=== PATIENT | female | born 1990 | race Caucasian/White ===

== ENCOUNTER 2020-01-07 10:56 | Inpatient (IN) ==
[2020-01-07] MEDS ORDERED: Oxytocin/Ringers Lactate 20 UNITS/1,000 ML BAG IV ONE (11:52)
[2020-01-07 11:56] LABS: Random Urine Total Protein Less than 6.0 mg/dL (0-12)
[2020-01-07] MEDS ORDERED: ceFAZolin SODIUM 1 GM VIAL IV PRN (12:05)
[2020-01-07] MEDS ORDERED: HYDROcodone/ACETAMINOPHEN 1 EACH TABLET PO PRN (13:35)
[2020-01-07] MEDS ORDERED: SENNOSIDES 8.6 MG TABLET PO PRN (13:35)
[2020-01-07] MEDS ORDERED: diphenhydrAMINE HCL 25 MG CAPSULE PO PRN (13:35)
[2020-01-07] MEDS ORDERED: BISACODYL 10 MG SUPP.RECT RC PRN (13:35)
[2020-01-07] MEDS ORDERED: SIMETHICONE 80 MG TAB.CHEW PO PRN (13:35)
[2020-01-07] MEDS ORDERED: ONDANSETRON HCL/PF 2 MG/ML VIAL IV PRN (13:35)
--- NOTE | 2020-01-07 13:38 | PN ---
Progess Note - Interim Date: 01/07/20 Time: 13:37 Narrative: 01/07/20 13:37 Please see H&P done in the office EMR
[2020-01-07] MEDS ORDERED: BUPIVACAINE HCL/EPINEPHRINE 50 ML VIAL IJ ONE (14:11)
[2020-01-07] MEDS ORDERED: ceFAZolin SODIUM 1 GM VIAL ONE (14:14)
--- NOTE | 2020-01-07 14:15 | ANES ---
Anesthesia Pre Procedure Eval HOME MEDICATIONS prenat.vits,mukund,[id number] 1 tab PO DAILY 06/25/19 [Last Taken Unknown] Allergies/Adverse Reactions: Allergies Allergy/AdvReac Type Severity Reaction Status Date / Time Penicillins AdvReac RASH Verified 01/07/20 13:27 - Planned Procedure Planned Procedure: Primary Section for Breech Presentation Medication List Reviewed:: Yes Allergies Verified: Yes Medical History (Last Reviewed 01/07/20 @ 14:14 by Bradley Mayorga CRNA) Abnormal Pap smear of cervix Surgical History (Last Reviewed 01/07/20 @ 14:14 by Bradley Mayorga CRNA) History of breast augmentation Onset Date: ~04/19/18 History of colposcopy Onset Date: ~2016 [facility] History of loop electrosurgical excision procedure (LEEP) Onset Date: ~2016 Family History (Last Reviewed 01/07/20 @ 14:14 by Bradley Mayorga CRNA) Mother Colon cancer, Onset Age: 55 Father Hypertension Other No pertinent family history - Family Anesthesia History Family History:: no untoward family reactions to anesthesia - Airway/Neck/Teeth Within Normal Limits:: Yes Teeth Condition: intact Neck Exam: full range of motion Mallampatti Score: 2 Thyromental (T-M) distance: > 6 cm Mandibulo Hyoid distance: > 3 cm - Respiratory Respiratory Physical: lungs clear Smoking Status: Never smoker Sleep Apnea currently treated: No Sleep Apnea by current assessment: No - Cardiovascular Tolerate Activity: Good Heart Sounds: S1 & S2, Regular - Gastrointestinal NPO since: 0800 - Anesthesia Assessment and Plan ASA Class: PS, II Anesthesia Type Plan: Spinal - bilat tap block Planned difficult intubation/equipment available: No
[2020-01-07] MEDS: RINGER'S SOLUTION,LACTATED 1,000 ML IV PRN ×2 (14:16→14:35)
[2020-01-07] MEDS ORDERED: ONDANSETRON HCL/PF 2 MG/ML VIAL ONE (15:37)
--- NOTE | 2020-01-07 17:00 | OR ---
Operative Report - Dictated Report Narrative: Date of delivery: 01/07/2020 Time of delivery: 1532 Gender: male weight: 2727 grams APGARS: 8/9 Preoperative diagnosis: IUP at 36w 2d, oligohydramnios, GHTN, labor Postoperative diagnosis: same. In addition, foul-smelling amniotic fluid Procedure: primary delivery Surgeon: Dr. Max Anesthesia: Spinal Anesthesiologist: Sanjiv Mayorga CRNA Description of the procedure: The patient was taken to the operating room where spinal anesthesia was induced. She was then prepped and draped in the lithotomy position in the standard surgical fashion. A Pfannestiel skin incision was made. The incision was carried through the subcutaneous tissue. The fascia was incised in the midline. The fascial incision was extended sharply. The fascia was dissected off the underlying rectus muscles. The rectus muscles were in the midline. The peritoneum was entered bluntly. A large Lukas restractor was placed in the abdomen. The uterus was incised in a low transverse fashion. The uterine incision was extended bluntly. Minimal amniotic fluid was noted. The amniotic fluid was noted to be foul smelling. The buttocks were delivered followed by the torso and the rest of the infant. Delivery was without difficulty. The cord was clamped and cut and the was handed off to the attending pediatric staff. Cord blood was collected. The placenta was delivered by expression and appeared intact. The uterine incision was repaired using two layers of 0-vicryl. Hemostasis was adequate. The subfascial tissues and rectus muscles were inspected for hemostasis. The fascia was closed with 1-0 vicryl. The subcutaneous tissue was closed with 2-0 vicryl. The skin was closed with 3-0 monocryl. Cesar Chavez marc was placed over the incision. The incision was covered with a dressing. All sponge, lap, and needle counts were correct. The patient tolerated the procedure well. She was transferred to the recovery room in stable condition. EBL: 400 mL Complications: none Specimens: cord blood, placenta
--- NOTE | 2020-01-07 17:44 | ANES ---
Post Anesthesia Discharge - Transfer of Care Transfer of Care handoff given to nurse: Yes - Discharge from PACU Discharge from PACU when meets criteria: Yes
--- NOTE | 2020-01-07 17:44 | ANES ---
Post Anesthesia Assessment - Vital Signs Vitals: Last Vital Signs Temp 36.6 C 01/07/20 16:52 Pulse 96 01/07/20 17:36 Resp 18 01/07/20 17:36 BP 137/68 01/07/20 17:36 Pulse Ox 99 01/07/20 17:36 Airway Patency: Normal - Mental Status Level Of Consciousness: Awake - Pain Level Pain Score: 2 - N/V Assessment Nausea/Vomiting Presence: None Dehydration:: No
--- NOTE | 2020-01-07 17:51 | ANES ---
Anesthesia Procedure Note Procedure Note: ANESTHESIA PROCEDURE NOTE Date of procedure: 01/07/2020. Time of procedure: 1620. Performed by: Sanjiv Mayorga CRNA [employer] Assistant: Marii Orr RN . Preprocedure diagnosis: for breech presentation. Post procedure diagnosis: Same. Procedure: Ultrasound-guided bilateral tap block Indications: Postoperative analgesia. Findings: Patient is brought to the PACU and placed in a supine position. Patient's right abdominal wall was prepped with ChloraPrep. Ultrasound utilized to identify the fascial layer between the internal oblique and transabdominus muscles. 20-gauge 4 inch regional block needle was advanced under ultrasound guidance until tip of needle was placed just distally to fascial layer. 20 mL of 0.25% Marcaine with epinephrine 1-200,000 was injected with adequate spread of local anesthesia noted. Procedure was then repeated on patient's left side. EBL: Minimal. Fluids: N/A. Specimen: N/A. Post procedure condition: The patient tolerated the procedure well. No complications were noted. Thank you for this consultation Sanjiv Mayorga CRNA
[2020-01-07] MEDS: HYDROcodone/ACETAMINOPHEN 1 EACH TABLET PO PRN ×2 (17:54→21:04)
[2020-01-07] MEDS: KETOROLAC TROMETHAMINE 30 MG/ML VIAL IV PRN (17:55)
[2020-01-07] MEDS: DOCUSATE SODIUM 100 MG CAPSULE PO SCH (21:04)
[2020-01-08] MEDS: HYDROcodone/ACETAMINOPHEN 1 EACH TABLET PO PRN ×7 (04:02→23:30)
[2020-01-08] MEDS ORDERED: ceFAZolin SODIUM 1 GM VIAL IV PRN (06:00)
[2020-01-08] MEDS: KETOROLAC TROMETHAMINE 30 MG/ML VIAL IV PRN ×3 (07:07→14:25)
--- NOTE | 2020-01-08 08:54 | PN ---
Subjective - Date and Time Seen Date: 01/08/20 Time: 08:52 Objective - Vitals Vitals: Last Vital Signs Temp 36.8 C 01/08/20 04:00 Pulse 83 01/08/20 04:00 Resp 16 01/08/20 04:00 BP 143/84 H 01/08/20 04:00 Pulse Ox 99 01/08/20 04:00 Patient denies complaints. Tolerating regular diet. Ambulating without difficulty. Pain well controlled. Lochia wnl. Abdomen - soft, appropriately tender Incision -clean, dry, intact uterus - firm, at umbilicus -1 No calf tenderness Impression: Post op day #1 s/p primary section for breech presentation in labor. Gestational hypertension-stable. Oligohydramnios. Plan: Continue routine post-operative/ care. Preeclampsia precautions. - Abnormal Lab Findings Abnormal Lab Findings: Abnormal Lab Results 01/07/20 Range/Units 11:09 Ur Random Creatinine 40.4 L (60-200) mg/dL Cauti Physician Documentation - Urinary Catheter Management Urethral (Anderson) Date of Insertion: 01/07/20 Time of Insertion: 15:18 Date of Removal: 01/08/20 Time of Removal: 04:10
[2020-01-08] MEDS: DOCUSATE SODIUM 100 MG CAPSULE PO SCH ×2 (09:13→22:22)
[2020-01-08] MEDS: IBUPROFEN 800 MG TABLET PO PRN (23:29)
[2020-01-09] MEDS: IBUPROFEN 800 MG TABLET PO PRN ×3 (05:41→19:10)
[2020-01-09] MEDS: DOCUSATE SODIUM 100 MG CAPSULE PO SCH ×2 (09:49→23:17)
[2020-01-09] MEDS: HYDROcodone/ACETAMINOPHEN 1 EACH TABLET PO PRN ×4 (09:49→23:17)
--- NOTE | 2020-01-09 17:45 | PN ---
Subjective - Date and Time Seen Date: 01/09/20 Time: 17:44 Objective - Vitals Vitals: Last Vital Signs Temp 36.4 C 01/09/20 07:01 Pulse 99 01/09/20 07:01 Resp 18 01/09/20 07:01 BP 120/86 01/09/20 07:01 Pulse Ox 99 01/09/20 07:01 Patient denies complaints. Ambulating well. Tolerating regular diet. Pain well controlled. Lochia wnl. Abdomen - soft, appropriately tender Incision -clean, dry, intact uterus - firm, at umbilicus -2 No calf tenderness Impression: Post op day #2 s/p primary section for breech presentation in labor. Gestational hypertension-resolved. Oligohydramnios -r esolved. Plan: Continue routine post-operative/ care Cauti Physician Documentation - Urinary Catheter Management Urethral (Anderson) Date of Insertion: 01/07/20 Time of Insertion: 15:18 Date of Removal: 01/08/20 Time of Removal: 04:10
[2020-01-10] MEDS: IBUPROFEN 800 MG TABLET PO PRN (06:36)
[2020-01-10] MEDS: HYDROcodone/ACETAMINOPHEN 1 EACH TABLET PO PRN (06:37)
[2020-01-10] MEDS: DOCUSATE SODIUM 100 MG CAPSULE PO SCH ×2 (06:37→08:38)
[2020-01-10 07:40] VITALS: BP 139/85
--- NOTE | 2020-01-10 11:12 | PN ---
Subjective - Date and Time Seen Date: 01/10/20 Time: 11:11 Objective - Vitals Vitals: Last Vital Signs Temp 36.8 C 01/10/20 06:40 Pulse 84 01/10/20 06:40 Resp 16 01/10/20 06:40 BP 139/85 01/10/20 06:40 Pulse Ox 100 01/10/20 00:30 Patient denies complaints. Ambulating without difficulty. Tolerating regular diet. Pain well controlled. Lochia wnl. Abdomen - soft, appropriately tender Incision -clean, dry, intact uterus - firm, at umbilicus -3 No calf tenderness Impression: Post op day #3 s/p primary section for breech presentation in labor. Gestational hypertension-resolved. Oligohydramnios - resolved. Plan: Routine discharge instructions Cauti Physician Documentation - Urinary Catheter Management Urethral (Anderson) Date of Insertion: 01/07/20 Time of Insertion: 15:18 Date of Removal: 01/08/20 Time of Removal: 04:10
--- NOTE | 2020-01-10 11:24 | DS ---
OB Discharge Summary Delivery Date: 01/07/20 Delivery Time: 15:32 :: 1 Para:: 1 Gestational weeks:: 36 Gestational days:: 2 Intrapartum Procedures: Delivered, Primary Section, Anesthesia - Spinal /OP Complications: No Complications Discharge Diagnosis: Gestational Hypertension, Delivery, Other - oligohydramnios - Discharge Information Date of Discharge: 01/10/20 Hospital Course: 29-year-old 1 para 0 admitted at 36-2/7 weeks for primary section due to oligohydramnios, gestational hypertension, and in labor. Her C- section and post care were uneventful. She was discharged to home on postop day #3 with routine discharge instructions. Discharge Location: Home Disposition: Home self-care Condition: Good Activity on Discharge:: Activity as tolerated, Pelvic Rest, No lifting Discharge Diet: General/regular food Additional Patient Instructions (free text): [facility] to schedule your follow up appointment for [address] Max. Jermaine has an appointment with Dr. Chau on SundayJanuary 11 at 10:45 a.m. Jermaine's blood type is A+ Discharge weight is 5 lbs 13.6 oz Discharge bilirubin 6.8 Continue to bottlefeed him at least every 2-[address] him on his back to sleep in his own bassinet or crib. No loose blankets, bumper pads, stuffed animals or pillows. Thank you for choosing [facility]. If you have any questions or concerns please don't hesitate to call us at [phone]. Prescriptions (Any new or edited meds): Ibuprofen [Motrin] 200 - 800 mg PO Q6H PRN #100 tab PRN Reason: Pain HYDROcodone/ACETAMINOPHEN [[place] 5-325] 1 ea PO Q3H PRN 5 Days #14 tab PRN Reason: Moderate Pain (Pain Scale 4-6) Transmission Status: Received by [place], [place] Complete Home Medications List: Complete Home Medication List: prenat.vits,mukund,[id number] 1 tab PO DAILY 06/25/19 HYDROcodone/ACETAMINOPHEN [[place] 5-325] 1 ea PO Q3H PRN 5 Days #14 tab 01/07/20 Ibuprofen [Motrin] 200 - 800 mg PO Q6H PRN #100 tab 01/09/20 - Plan Discharge to:: Home Follow up in office in:: 2 weeks - [place] Information Weight (Grams): 2,727 Infant Sex: Male Score 1 min: 8 Score 5 min: 9 Circumcision: No Complications: Oligohydraminos Other Complications: catracho breech presentation
== END 2020-01-10 12:05 | disposition home or self-care (01) | DRG 787 ==
LOC: OB 10:56
PROVIDERS: ADMIT Obstetrics & Gynecology; ATTEND Obstetrics & Gynecology
DX: Z37.0 Single live birth; O41.8X30 Other specified disorders of amniotic fluid and membranes, third trimester, not applicable or unspecified; Z3A.36 36 weeks gestation of pregnancy; O13.4 Gestational [pregnancy-induced] hypertension without significant proteinuria, complicating childbirth; O32.1XX0 Maternal care for breech presentation, not applicable or unspecified; O41.03X0 Oligohydramnios, third trimester, not applicable or unspecified